=== PATIENT | female | born 1975 | race Two or more races ===

== ENCOUNTER 2022-09-15 14:15 | Emergency (ER) | payer OTHER ==
[~2022-09-15] VITALS: Ht 162.6 cm; Wt 90.0 kg
[2022-09-15 14:25] VITALS: BP 154/76; PULSE 88; RESP 18; TEMP 98.4; O2SAT 99
[2022-09-15] MEDS ORDERED: CYCL-837 PO (19:28)
[2022-09-15] MEDS ORDERED: IBUP-1456 PO (19:28)
[2022-09-15] MEDS ORDERED: ONDANSETRON ODT 4 MG TAB PO ONE (19:30)
[2022-09-15] MEDS ORDERED: HYDROcodone-ACET 5/325MG TAB PO ONE (19:30)
== END 2022-09-15 21:30 | disposition home or self-care (01) ==
LOC: ER 14:15
DX: S16.1XXA Strain of muscle, fascia and tendon at neck level, initial encounter (principal); S39.012A Strain of muscle, fascia and tendon of lower back, initial encounter; R51.9 Headache, unspecified; E11.9 Type 2 diabetes mellitus without complications; E78.5 Hyperlipidemia, unspecified; I10 Essential (primary) hypertension; Z90.49 Acquired absence of other specified parts of digestive tract; W01.0XXA Fall on same level from slipping, tripping and stumbling without subsequent striking against object, initial encounter; Y93.23 Activity, snow (alpine) (downhill) skiing, snowboarding, sledding, tobogganing and snow tubing; Y92.89 Other specified places as the place of occurrence of the external cause; Y99.8 Other external cause status
CPT/HCPCS: 70450; 72100; 72125; 82962; 99284; Q0162